=== PATIENT | male | born 1990 | race Two or more races ===

== ENCOUNTER 2021-02-07 15:07 | Emergency (ER) | payer SELFPAY ==
[~2021-02-07] VITALS: Ht 167.6 cm; Wt 83.6 kg
[2021-02-07] MEDS ORDERED: acetaminophen 325mg tablet PO ONE (15:15)
[2021-02-07] MEDS ORDERED: amox tr/potassium clavulanate 875/125mg TAB PO ONE (15:15)
[2021-02-07] MEDS ORDERED: bacitracin 15gm ointment TP ONE (15:15)
[2021-02-07] MEDS ORDERED: TETanus/Pertussis (Acell)/Diphther VAC/PF (Tdap-Adult) 0.5ml syringe IMVAC ONE (15:15)
[2021-02-07 15:34] VITALS: BP 162/104
[2021-02-07] MEDS ORDERED: AMOX-580 PO (15:56)
== END 2021-02-07 16:30 ==
LOC: ER 15:08
DX: S51.812A Laceration without foreign body of left forearm, initial encounter (principal); Z20.3 Contact with and (suspected) exposure to rabies; Z79.2 Long term (current) use of antibiotics; W54.0XXA Bitten by dog, initial encounter; Y93.89 Activity, other specified; Y92.89 Other specified places as the place of occurrence of the external cause; Y99.8 Other external cause status
CPT/HCPCS: 73090; 90471; 90715; 99284